=== PATIENT | female | born 2000 | race Caucasian/White ===

== ENCOUNTER 2018-10-22 11:14 | Day surgery (SDC) | payer BC, OTHER ==
[2018-10-21 15:22] VITALS: BMI 26.4
[2018-10-22] MEDS ORDERED: PROPOFOL 20 ML ONE ×3 (11:54)
[2018-10-22] MEDS ORDERED: LIDOCAINE HCL/PF 2% SDV 5ML VIAL ONE (12:09)
[2018-10-22 13:50] VITALS: TEMP 97.8
[2018-10-22 13:57] VITALS: BP 93/69; PULSE 80
--- NOTE | 2018-10-24 17:39 | PATH ---
Surgical Pathology Report Patient Name: ZHOU CORTEZ [facility]. Rec. #: [id number] /Age/Gender: 2000 (Age: 18) / F Account: [id number] Location: [facility] Taken: 10/22/2018 Received: 10/22/2018 Reported: 10/24/2018 Physicians: Chika Gabriel M.D. Specimen(s) Received A: RIGHT COLON BIOPSY B: BIOPSY OF TRANSVERSE COLON C: BIOPSY OF DESCENDING COLON D: BIOPSY AT RECTUM Clinical History Diarrhea Postoperative diagnosis: Hemorrhoids Final Diagnosis A. RIGHT COLON, BIOPSY: COLONIC MUCOSA WITH NO SIGNIFICANT PATHOLOGIC CHANGE. NO HISTOLOGIC EVIDENCE OF ACTIVE COLITIS OR GRANULOMATOUS INFLAMMATION. B. TRANSVERSE COLON, BIOPSY: COLONIC MUCOSA WITH FOCAL REACTIVE LYMPHOID AGGREGATE IN THE LAMINA PROPRIA. NO HISTOLOGIC EVIDENCE OF ACTIVE COLITIS OR GRANULOMATOUS INFLAMMATION. C. DESCENDING COLON, BIOPSY: COLONIC MUCOSA WITH FOCAL REACTIVE LYMPHOID AGGREGATE IN THE LAMINA PROPRIA. NO HISTOLOGIC EVIDENCE OF ACTIVE COLITIS OR GRANULOMATOUS INFLAMMATION. D. RECTUM, BIOPSY: COLONIC MUCOSA WITH FOCAL RECENT HEMORRHAGE IN THE LAMINA PROPRIA. NO HISTOLOGIC EVIDENCE OF PROCTITIS. Electronically Signed Sarah Myers M.D. Gross Description A. Received in formalin, labeled "biopsy of right colon" is a hagan, irregular portion of soft tissue measuring 0.6 cm. in greatest dimension. The specimen is submitted in toto in one cassette. B. Received in formalin, labeled "biopsy of transverse colon" is a hagan, irregular portion of soft tissue measuring 0.6 cm. in greatest dimension. The specimen is submitted in toto in one cassette. C. Received in formalin, labeled "biopsy of descending colon" is a hagan, irregular portion of soft tissue measuring 0.3 cm. in greatest dimension. The specimen is submitted in toto in one cassette. D. Received in formalin, labeled "biopsy of rectum" is a hagan, irregular portion of soft tissue measuring 0.4 cm. in greatest dimension. The specimen is submitted in toto in one cassette. 10/23/2018 saudi10/23/2018
== END 2018-10-22 13:30 | disposition home or self-care (01) ==
LOC: FASU-ENDO 11:14
PROVIDERS: ATTEND Internal Medicine Gastroenterology
PROC: 0DBL8ZX Excision of Transverse Colon, Via Natural or Artificial Opening Endoscopic, Diagnostic (ICD-10-PCS; 2018-10-22)
PROC: 0DBP8ZX Excision of Rectum, Via Natural or Artificial Opening Endoscopic, Diagnostic (ICD-10-PCS; 2018-10-22)
PROC: 0DBM8ZX Excision of Descending Colon, Via Natural or Artificial Opening Endoscopic, Diagnostic (ICD-10-PCS; 2018-10-22)
PROC: 0DBK8ZX Excision of Ascending Colon, Via Natural or Artificial Opening Endoscopic, Diagnostic (ICD-10-PCS; principal; 2018-10-22 12:15)
DX: K63.89 Other specified diseases of intestine (principal); K64.1 Second degree hemorrhoids; R19.7 Diarrhea, unspecified; R19.5 Other fecal abnormalities
CPT/HCPCS: 84703; 88305-TC